=== PATIENT | male | born 1940 | race African-American/Black ===

== ENCOUNTER → 2017-09-19 | Outpatient (CLI) | payer OTHER ==
--- NOTE | 2017-09-19 15:24 | Diagnostic Imaging Report ---
EXAM: Scrotal Ultrasound with Duplex INDICATION: \[id number] \S\[id number] \S\LEFT TESTICULAR PAIN COMPARISON: None TECHNIQUE: Transverse and longitudinal images were obtained of the scrotum with grayscale imaging, color Doppler and spectral waveform analysis. FINDINGS: Right testis: Size: 4.6 x 3.3 x 3.3 cm, normal in size. Echogenicity: Normal Mass/Cysts: None Left testis: Size: 5 x 2.2 x 3.3 cm, normal in size. Echogenicity: Normal Mass/Cysts: None Epididymis: Appearance: Normal in size without increased vascularity. Mass/Cysts: None Extratesticular: Masses: None Hydrocele: None Varicocele: On the left side. Doppler: Normal arterial flow to both testes and symmetrical flow on color Doppler evaluation is seen. No evidence of testicular torsion. IMPRESSION: 1. No evidence of testicular torsion. 2. Left varicocele. Signed by: Dr. Reji Felipe MD on 09/19/2017 3:21 PM
--- NOTE | 2017-09-19 15:24 | Diagnostic Imaging Report ---
EXAM: Scrotal Ultrasound with Duplex INDICATION: \[id number] \S\1428 \S\LEFT TESTICULAR PAIN COMPARISON: None TECHNIQUE: Transverse and longitudinal images were obtained of the scrotum with grayscale imaging, color Doppler and spectral waveform analysis. FINDINGS: Right testis: Size: 4.6 x 3.3 x 3.3 cm, normal in size. Echogenicity: Normal Mass/Cysts: None Left testis: Size: 5 x 2.2 x 3.3 cm, normal in size. Echogenicity: Normal Mass/Cysts: None Epididymis: Appearance: Normal in size without increased vascularity. Mass/Cysts: None Extratesticular: Masses: None Hydrocele: None Varicocele: On the left side. Doppler: Normal arterial flow to both testes and symmetrical flow on color Doppler evaluation is seen. No evidence of testicular torsion. IMPRESSION: 1. No evidence of testicular torsion. 2. Left varicocele. Signed by: Dr. Reji Felipe MD on 09/19/2017 3:21 PM
== END ==
LOC: US 09-15 12:40
PROVIDERS: ATTEND Internal Medicine
DX: N50.9 Disorder of male genital organs, unspecified (principal)
CPT/HCPCS: 76870; 93976

== ENCOUNTER 2019-10-07 20:51 | Observation (INO) | payer OTHER ==
[~2019-10-07] VITALS: Ht 180.3 cm; Wt 85.6 kg
--- OUTSIDE RECORDS SUMMARY | 2019-10-07 20:53 | XMS REPORT ---
Author Author [facility] Address Unknown Phone Unavailable Care Team Providers Care Budget Controller Name Role Phone GETACHEW RAY Unavailable Unavailable Problems This patient has no known problems. Allergies, Adverse Reactions, Alerts This patient has no known allergies or adverse reactions. Medications This patient has no known medications. Results Test Description Test Time Test Comments Text Results Atomic Results Result Comments US TESTICULAR DOPPLER LTD [place] [address] Patient Name: NICCI WALTON MR #: [id number] : 1940 Age/Sex: 76/M Req #: [id number] Adm Physician: Ordered by: GETACHEW RAY MD Report #: [id number] Location: Room/Bed: Procedure: [id number] US/US TESTICULAR DOPPLER LTD Exam Date: 09/19/17 Exam Time: 1428 REPORT STATUS: Signed EXAM: Scrotal Ultrasound with Duplex INDICATION: COMPARISON: None TECHNIQUE: Transverse and longitudinal images were obtained of the scrotum with grayscale imaging, color Doppler and spectral waveform analysis. FINDINGS: Right testis: Size: 4.6 x 3.3 x 3.3 cm, normal in size. Echogenicity: Normal Mass/Cysts: None Left testis: Size: 5 x 2.2 x 3.3 cm, normal in size. Echogenicity: Normal Mass/Cysts: None Epididymis: Appearance: Normal in size without increased vascularity. Mass/Cysts: None Extratesticular: Masses: None Hydrocele: None Varicocele: On the left side. Doppler: Normal arterial flow to both testes and symmetrical flow on color Doppler evaluation is seen. No evidence of testicular torsion. IMPRESSION: 1. No evidence of testicular torsion. 2. Left varicocele. Signed by: Dr. Reji Felipe MD on 09/19/2017 3:21 PM Dictated By: REJI FELIPE MD 1521 Transcribed By: BRIANA on 09/19/17 1521 COPY TO: GETACHEW RAY MD TESTICULAR [place] [address] Patient Name: NICCI WALTON MR #: [id number] : 1940 Age/Sex: 76/M Req #: [id number] Adm Physician: Ordered by: GETACHEW RAY MD Report #: [id number] Location: US Room/Bed: Procedure: [id number] US/US TESTICULAR Exam Date: 09/19/17 Exam Time: 1428 REPORT STATUS: Signed EXAM: Scrotal Ultrasound with Duplex INDICATION: COMPARISON: None TECHNIQUE: Transverse and longitudinal images were obtained of the scrotum with grayscale imaging, color Doppler and spectral waveform analysis. FINDINGS: Right testis: Size: 4.6 x 3.3 x 3.3 cm, normal in size. Echogenicity: Normal Mass/Cysts: None Left testis: Size: 5 x 2.2 x 3.3 cm, normal in size. Echogenicity: Normal Mass/Cysts: None Epididymis: Appearance: Normal in size without increased vascularity. Mass/Cysts: None Extratesticular: Masses: None Hydrocele: None Varicocele: On the left side. Doppler: Normal arterial flow to both testes and symmetrical flow on color Doppler evaluation is seen. No evidence of testicular torsion. IMPRESSION: 1. No evidence of testicular torsion. 2. Left varicocele. Signed by: Dr. Rjei Felipe MD on 09/19/2017 3:21 PM Dictated By: REJI FELIPE MD 1521 Transcribed By: BRIANA on 09/19/17 1521 COPY TO: GETACHEW RAY MD
[2019-10-07 21:12] LABS: BASOPHILS # (AUTO) 0.1 (0.0-0.1); BASOPHILS % 1.4 % (0.0-1.0); EOSINOPHILS # (AUTO) 0.4 (0.0-0.4); EOSINOPHILS % 7.7 % (0.0-6.0); HEMATOCRIT 42.8 % (38.2-49.6); HEMOGLOBIN 14.4 g/dL (14.0-18.0); LYMPHOCYTES # (AUTO) 1.1 (1.0-3.2); LYMPHOCYTES % 18.3 % (18.0-39.1); MEAN CORPUSCULAR HGB CONC 33.6 g/dL (31-35); MEAN CORPUSCULAR VOLUME 89.2 fL (81-99); MONOCYTES # (AUTO) 0.7 (0.2-0.8); MONOCYTES % 12.7 % (4.4-11.3); NEUTROPHILS # (AUTO) 3.4 (2.1-6.9); NEUTROPHILS % 59.6 % (38.7-80.0); PLATELET COUNT 209 x10e3/uL (140-360); RED CELL DISTRIBUTION WIDTH 12.7 % (11.7-14.4)
[2019-10-07 21:31] LABS: ALBUMIN 3.6 g/dL (3.5-5.0); ALBUMIN/GLOBULIN RATIO 1.1 (0.8-2.0); ANION GAP 14.9 mmol/L (8-16); CALCIUM 9.5 mg/dL (8.4-10.2); CREATININE, SERUM 1.39 mg/dL (0.72-1.25); POTASSIUM 3.9 mmol/L (3.5-5.1)
[2019-10-07 21:37] LABS: CREATINE KINASE MB 2.3 ng/mL (0-5.0)
--- NOTE | 2019-10-07 22:33 | Diagnostic Imaging Report ---
Examination: CT head without contrast Clinical Indication: Dizziness, nausea. Technique: Transaxial noncontrast images from the skull base through the vertex were obtained. Sagittal and coronal reformatted images were done. Dose modulation, iterative reconstruction, and/or weight based adjustment of the mA/kV was utilized to reduce the radiation dose to as low as reasonably achievable. Comparison: None. Findings: Scalp: No abnormalities. Bones: Intact. No fractures. No blastic or lytic lesions. Brain sulci: Mild volume loss for patient's age. Ventricles: No hydrocephalus. Extra-axial space: No abnormalities. Parenchyma: There are subtle confluent areas of low-attenuation within subcortical and periventricular white matter, nonspecific, but could represent microvascular ischemic disease. No masses, hemorrhage, or acute or chronic cortical based vascular insults. Suprasellar region: No abnormalities. Craniocervical junction: The foramen magnum is patent. No Chiari one malformation. Incidental findings: Atherosclerotic calcification of the cavernous and supraclinoid internal carotid arteries. Impression: 1. No acute intracranial finding. 2. Mild chronic microvascular ischemic change and volume loss. Signed by: Dr. Kelley Clark M.D. on 10/07/2019 10:31 PM
--- NOTE | 2019-10-07 22:41 | Diagnostic Imaging Report ---
EXAMINATION: CHEST 2 VIEWS INDICATION: Left chest pain, dizziness ^CP ^Y COMPARISON: None FINDINGS: PA and lateral views TUBES and LINES: None. LUNGS: Lungs are well inflated. There is no evidence of pneumonia or pulmonary edema. PLEURA: No pleural effusion or pneumothorax. Mild eventration of the right diaphragm. HEART AND MEDIASTINUM: The cardiomediastinal silhouette is unremarkable.. BONES AND SOFT TISSUES: Degenerative changes of the spine. No focal osseous lesions. Soft tissues are unremarkable. UPPER ABDOMEN: Unremarkable. IMPRESSION: No acute thoracic abnormality. Signed by: Dr. Genny Cruz MD on 10/07/2019 10:39 PM
[2019-10-07] MEDS ORDERED: DEXTROSE 50% SYRINGE 50 ML IV PRN (23:45)
[2019-10-08] VITALS (9 sets, daily range): BP systolic 124–185; BP diastolic 62–89
[2019-10-08 03:03] LABS: CREATINE KINASE MB 1.9 ng/mL (0-5.0)
[2019-10-08 06:28] LABS: CREATINE KINASE MB 1.8 ng/mL (0-5.0)
[2019-10-08 06:45] LABS: CHOL/HDL RATIO 3.2 (3.9-4.7)
[2019-10-08] MEDS: INSULIN REGULAR, HUMAN 100 UNIT/1 ML 3ML VIAL SQ SCH ×4 (07:30→20:45)
[2019-10-08] MEDS ORDERED: VIT D PO (07:47)
[2019-10-08] MEDS ORDERED: BUPROPION PO (07:47)
[2019-10-08] MEDS ORDERED: MVI PO (07:47)
[2019-10-08] MEDS ORDERED: GLIPIZIDE PO (07:47)
[2019-10-08] MEDS ORDERED: ROSUVASTATIN PO (07:47)
[2019-10-08] MEDS ORDERED: FLOMAX PO (07:47)
[2019-10-08] MEDS ORDERED: VIT B 12 PO (07:47)
[2019-10-08] MEDS ORDERED: AMLODIPINE PO (07:47)
[2019-10-08] MEDS ORDERED: LISINOPRIL PO (07:47)
[2019-10-08] MEDS: FAMOTIDINE 20 MG TAB PO SCH ×2 (08:28→17:24)
[2019-10-08] MEDS: METOPROLOL TARTRATE 25 MG TAB PO SCH ×2 (08:28→20:49)
[2019-10-08] MEDS: ASPIRIN 81 MG CHEW TAB PO SCH (08:28)
[2019-10-08] MEDS ORDERED: AMLODIPINE BESYLATE 5 MG TAB PO SCH (09:00)
[2019-10-08] MEDS: LISINOPRIL 20 MG TAB PO SCH (09:57)
[2019-10-08] MEDS: BUPROPION HCL 150 MG TABCR PO SCH (09:57)
[2019-10-08] MEDS: HYDRALAZINE HCL 25 MG TAB PO SCH ×2 (13:41→23:00)
--- NOTE | 2019-10-08 14:08 | History and Physical ---
CHIEF COMPLAINT: Left-sided chest pain last evening, lasting for about half an hour. HISTORY OF PRESENT MEDICAL ILLNESS: A 78-year-old pleasant male with past medical history of multiple medical problems, was admitted at [facility] last night with above complaints. As per the patient, around 4 p.m. yesterday, he started having left-sided chest pain. The patient thought that he probably he might be having low sugar. He had some pie and then the pain got better. Then, again in 2-3 hours, the patient again started having left-sided severe chest pain and hence EMS was called. The patient was brought in by ambulance to the ER. In the emergency room, the patient was seen by emergency room doctor, Dr. Lisa and admitted for further care and treatment. At present, the patient is lying comfortably in bed asymptomatic. No chest pain. No shortness of breath. No nausea, vomiting, or diarrhea. No abdominal pain. No loss of consciousness. No palpitations. No headaches. No hematemesis. No melena. No hematuria. No dysuria. No fever. No cough. No witnessed seizures. PAST MEDICAL HISTORY: 1. Diabetes mellitus type 2. 2. Hypertension. 3. Hyperlipidemia. 4. Gout. MEDICATIONS: Aspirin 81 mg p.o. daily, glipizide 0.5 mg p.o. daily, rosuvastatin 20 mg p.o. daily, multivitamins, Wellbutrin XL 300 mg p.o. daily, Flomax 0.4 mg p.o. daily, latanoprost 0.005% solution in affected eye evening once a day, hydrochlorothiazide 25 mg p.o. daily, lisinopril 20 mg p.o. daily, and amlodipine 5 mg p.o. daily. ALLERGIES: IODINE. PAST SURGICAL HISTORY: None. SOCIAL HISTORY: No smoking. No alcohol. No illicit drug use. Lives with family. REVIEW OF SYSTEMS: As per HPI. PHYSICAL EXAMINATION: GENERAL: The patient is alert, awake, and oriented x3, in no apparent distress, lying in bed. VITAL SIGNS: Temperature is 97, pulse is 67 per minute, respirations 18 per minute, blood pressure is 164/80, and saturation is 98% on room air. SKIN: No cyanosis. No icterus. No pallor. HEENT: Normocephalic and atraumatic. PERRLA plus. NECK: Supple. No JVD. No carotid bruit. No lymphadenopathy. LUNGS: Air entry bilaterally equal. HEART: S1 and S2 plus. No murmur, gallop, or rub. ABDOMEN: Soft and nontender. Bowel sounds plus. 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 No focal deficit. EXTREMITIES: No cyanosis. No clubbing. No edema. Peripheral pulses palpable. No calf pain. LABORATORY DATA: White count 5.7, hemoglobin 14.4, hematocrit 42.8, and platelets 209. Sodium 142, potassium 3.9, chloride 105, bicarb 26, BUN 18, creatinine 1.39, and glucose 187. LFTs noted. Cardiac enzymes x2 negative. LDL 91, HDL 47, and total cholesterol 150. EKG shows sinus rhythm with first-degree AV block, bifascicular block, left ventricular hypertrophy. ASSESSMENT: 1. Chest pain, rule out ischemic heart disease. 2. History of diabetes mellitus type 2. 3. Hypertension. 4. Gout. PLAN: Admit the patient to med/tele. Serial cardiac enzymes. 2D echo. Cardiology consultation, Dr. Glass. Continue home medications. DVT and stress prophylaxis. Further care and treatment as per clinical course of the patient in the hospital. Discussed with the patient in detail. Vilma Wells MD SSB/MODL /[id number]
[2019-10-08 15:15] LABS: CREATINE KINASE MB 2.3 ng/mL (0-5.0)
[2019-10-08] MEDS: ENOXAPARIN SOD INJ 40 MG/0.4 ML SYR SC SCH (17:24)
[2019-10-08] MEDS: CRESTOR 10MG PO SCH (20:48)
[2019-10-08] MEDS: TAMSULOSIN HCL 0.4 MG CAP PO SCH (20:48)
--- NOTE | 2019-10-09 01:06 | Consultation ---
DATE OF CONSULTATION: 10/08/2019 Cardiology Consult Note REASON FOR CONSULT: Chest pain. CHIEF COMPLAINT: Chest pain and dizziness. HISTORY OF PRESENT ILLNESS: The patient is a 78-year-old man history of diabetes, hypertension, hyperlipidemia with no previous history of CAD or MO or other cardiovascular issues. He says yesterday afternoon, he started feeling a little bit unwell with some discomfort in his chest. Initially, he did not think much of it and went to have dinner at his sister's house. After having a large meal, he returned home and when he was at home, started having left-sided pressure in his chest with some associated dizziness. He thought he had to use the restroom. He tried to use the restroom, but due to pain, he had to sit down on the floor. The pain lasted several minutes and eventually eased. EMS was called and the patient was brought to the emergency room. He denies any shortness of breath, orthopnea, PND, palpitations, or syncopal event. No fevers, chills, or cough. PAST MEDICAL HISTORY: 1. Diabetes type 2, on oral medications only. 2. Hypertension. 3. Hyperlipidemia. SOCIAL HISTORY: The patient is a never smoker. Drinks occasionally. Does not abuse drugs. FAMILY HISTORY: No family history of early CAD or sudden cardiac . OUTPATIENT MEDICATIONS: Reviewed. ALLERGIES: REVIEWED. REVIEW OF SYSTEMS: As per HPI, otherwise negative. OBJECTIVE: VITAL SIGNS: Temperature afebrile, pulse 75, respiratory rate 18, blood pressure 124/76, saturating 100% on room air. GENERAL: Elderly man, in no acute distress. CARDIOVASCULAR: Regular rate and rhythm. No murmurs, rubs, or gallops. LUNGS: Clear to auscultation bilaterally. ABDOMEN: Soft, nontender, nondistended. No masses. NEURO AND PSYCH: Alert and oriented to person, place, and time. Normal affect. EXTREMITIES: Lower extremities without any ulcers or edema. Peripheral pulses are intact and palpable. INPATIENT MEDICATIONS: Reviewed. LABORATORY DATA: Reviewed. Troponins are negative x2. Creatinine 1.4. Hemoglobin 14. IMAGING DATA: Reviewed. Chest x-ray shows no acute abnormality. Head CT shows no acute intracranial findings. TELEMETRY DATA: Reviewed, shows normal sinus rhythm. A 12-lead EKG reviewed shows right bundle branch block with no acute ST-T changes suggestive of ischemia. Echocardiogram reviewed, shows normal LV function. No severe valvular abnormalities. ASSESSMENT: Chest pain. PLAN: Had both typical and atypical features. The patient has been ruled out for acute MO. Given his age and risk factors, recommend nuclear stress test tomorrow. Further recommendations with results of the study. Plan discussed with the patient. Thank you for this consult. We will continue to follow. MD SHAAN Byrd/MAGEN /[id number]
[2019-10-09 05:05] VITALS: BP 130/74
[2019-10-09] MEDS: HYDRALAZINE HCL 25 MG TAB PO SCH ×3 (06:27→22:30)
[2019-10-09 07:25] VITALS: BP 147/89
[2019-10-09] MEDS: INSULIN REGULAR, HUMAN 100 UNIT/1 ML 3ML VIAL SQ SCH ×4 (07:30→21:00)
[2019-10-09 07:56] VITALS: BP 147/82
[2019-10-09] MEDS: FAMOTIDINE 20 MG TAB PO SCH ×2 (08:10→16:30)
[2019-10-09] MEDS: ASPIRIN 81 MG CHEW TAB PO SCH (09:25)
[2019-10-09] MEDS: METOPROLOL TARTRATE 25 MG TAB PO SCH ×2 (09:25→21:34)
[2019-10-09] MEDS: LISINOPRIL 20 MG TAB PO SCH (09:25)
[2019-10-09] MEDS: BUPROPION HCL 150 MG TABCR PO SCH (09:26)
[2019-10-09 11:16] VITALS: BP 136/78
--- NOTE | 2019-10-09 12:38 | Progress Note ---
DATE: 10/09/2019 Cardiology Progress Note SUBJECTIVE: The patient feeling better. Denies any chest pain or shortness of breath. OBJECTIVE: VITAL SIGNS: Temperature 97.3, heart rate is 51, respirations are 18, blood pressure is 136/78, and oxygen saturation 100% on room air. GENERAL: Well-appearing, in no apparent distress. Alert and oriented x3. NECK: No JVD. No bruits. CARDIOVASCULAR: Regular rate and rhythm. No murmurs. LUNGS: Clear to auscultation. No wheezing or rales. ABDOMEN: Soft, nontender, and nondistended. EXTREMITIES: No clubbing, cyanosis, or edema. VASCULAR: 2+ pulses. NEUROLOGIC: No focal deficits noted. LABORATORY DATA: Reviewed. Normal troponins. Glucose was 115. No recent labs. IMPRESSION: 1. Precordial pain. 2. Abnormal electrocardiogram. 3. Right bundle branch block. 4. Bradycardia. 5. Hypertension. 6. Hyperlipidemia. RECOMMENDATIONS: Continue current cardiovascular medications including lisinopril, metoprolol, aspirin, and Crestor. Lovenox for DVT prophylaxis. His echocardiogram showed normal left ventricular systolic function. We will need ischemic evaluation with nuclear stress test tomorrow morning. DO EULALIA Walters/MODL /[id number]
[2019-10-09 15:14] VITALS: BP 118/74
[2019-10-09] MEDS: ENOXAPARIN SOD INJ 40 MG/0.4 ML SYR SC SCH (17:13)
[2019-10-09 20:00] VITALS: BP 155/79
[2019-10-09] MEDS: TAMSULOSIN HCL 0.4 MG CAP PO SCH (21:34)
[2019-10-09] MEDS: CRESTOR 10MG PO SCH (21:34)
[2019-10-10] VITALS (8 sets, daily range): BP systolic 134–190; BP diastolic 67–99
[2019-10-10] MEDS: HYDRALAZINE HCL 25 MG TAB PO SCH ×3 (06:13→21:12)
[2019-10-10] MEDS: FAMOTIDINE 20 MG TAB PO SCH ×2 (07:30→18:06)
[2019-10-10] MEDS: INSULIN REGULAR, HUMAN 100 UNIT/1 ML 3ML VIAL SQ SCH ×4 (07:30→20:10)
[2019-10-10] MEDS ORDERED: REGADENOSON 0.4 MG/5 ML SYR IV ONE (08:33)
--- NOTE | 2019-10-10 10:38 | Progress Note ---
DATE: 10/10/2019 Cardiology Progress Note SUBJECTIVE: The patient feeling well, seated in chair. No chest pain, shortness of breath, or palpitations. OBJECTIVE: VITAL SIGNS: Temperature is 97.9, heart rate is 58, respirations are 20, blood pressure is 139/77, and oxygen saturation 99% on room air. GENERAL: Well appearing, well built, in no apparent distress. Alert and oriented x3. HEAD: Normocephalic and atraumatic. CARDIOVASCULAR: Regular rate and rhythm. LUNGS: Clear to auscultation. ABDOMEN: Soft, nontender, and nondistended. EXTREMITIES: No clubbing, cyanosis, or edema. VASCULAR: 2+ pulses. LABORATORY DATA: Reviewed. Glucose is 136. CARDIOVASCULAR MEDICATIONS: Reviewed. TELEMETRY: Monitoring revealed normal sinus rhythm. IMPRESSION: 1. Precordial pain. 2. Hypertension. 3. Hyperlipidemia. 4. Abnormal echocardiogram. 5. Right bundle branch block. RECOMMENDATIONS: The patient ruled out for acute myocardial infarction. Continue current cardiovascular medications. Echocardiogram showed normal left ventricular systolic function. Today, he will undergo ischemic evaluation with a nuclear stress test. If this is within normal limits, the patient may be discharged from a cardiovascular standpoint. DO EULALIA Walters/MAGEN /[id number]
[2019-10-10] MEDS: ASPIRIN 81 MG CHEW TAB PO SCH (14:00)
[2019-10-10] MEDS: BUPROPION HCL 150 MG TABCR PO SCH (14:58)
[2019-10-10] MEDS: LISINOPRIL 20 MG TAB PO SCH (14:58)
[2019-10-10] MEDS: METOPROLOL TARTRATE 25 MG TAB PO SCH ×2 (14:59→21:12)
[2019-10-10] MEDS: ENOXAPARIN SOD INJ 40 MG/0.4 ML SYR SC SCH (17:00)
[2019-10-10 19:28] LABS: ANION GAP 14.1 mmol/L (8-16); BLOOD UREA NITROGEN 15 mg/dL (7-26); BUN/CREATININE RATIO 13 (6-25); CALCIUM 9.2 mg/dL (8.4-10.2); CARBON DIOXIDE 26 mmol/L (22-29); CHLORIDE 103 mmol/L (98-107); CREATININE, SERUM 1.12 mg/dL (0.72-1.25); EST GLOMERULAR FILTRATION RATE > 60 ML/MIN (60-); GLUCOSE 121 mg/dL (74-118); POTASSIUM 4.1 mmol/L (3.5-5.1); SODIUM 139 mmol/L (136-145)
[2019-10-10] MEDS: TAMSULOSIN HCL 0.4 MG CAP PO SCH (21:12)
[2019-10-10] MEDS: CRESTOR 10MG PO SCH (21:12)
[2019-10-11] VITALS: BP 163/81
[2019-10-11 04:00] VITALS: BP 134/71
[2019-10-11] MEDS: HYDRALAZINE HCL 25 MG TAB PO SCH (05:31)
[2019-10-11 08:00] VITALS: BP 121/76
[2019-10-11] MEDS ORDERED: HEPARIN SOD (PORCINE) 1000 UNIT/ML 30ML ONE (09:23)
[2019-10-11] MEDS ORDERED: MIDAZOLAM HCL 2 MG/2 ML VIAL ONE (09:24)
[2019-10-11] MEDS ORDERED: FENTANYL CITRATE/PF 100MCG/2 ML INJ ONE (09:24)
[2019-10-11] MEDS ORDERED: VERAPAMIL HCL 2.5 MG/ML 2 ML VIAL ONE (09:24)
[2019-10-11] MEDS ORDERED: IOPAMIDOL 370 MG/ML 200 ML INFUS..BTL INJ ONE (09:25)
[2019-10-11] MEDS ORDERED: LIDOCAINE HCL 2% LOCAL 20 ML VIAL ONE (09:25)
[2019-10-11] MEDS ORDERED: SODIUM CHLORIDE 0.9% 1000ML 1,000 ML ONE (09:25)
[2019-10-11] MEDS ORDERED: NITROGLYCERIN/D5W 200 MCG/ML 0 ML ONE (09:25)
[2019-10-11] MEDS ORDERED: HEPARIN SOD/SOD CHLORIDE 2,000 ML ONE (09:25)
[2019-10-11] MEDS ORDERED: METHYLPREDNISOLONE SOD SUCC 125 MG/2ML VIAL ONE (09:37)
[2019-10-11] MEDS ORDERED: DIPHENHYDRAMINE HCL INJ 50 MG/ML VIAL ONE (09:37)
--- NOTE | 2019-10-11 11:49 | Operative Report ---
DATE OF PROCEDURE: 10/11/2019 SURGEON: Hector Dixon DO PROCEDURES PERFORMED: 1. Selective coronary angiography x2. 2. Conscious sedation, 26 minutes. PREPROCEDURE DIAGNOSIS: Abnormal stress test. POSTPROCEDURE DIAGNOSIS: No significant coronary artery disease. ESTIMATED BLOOD LOSS: Less than 20 mL. SPECIMENS REMOVED: None. PROCEDURE IN DETAIL: After informed consent was obtained, the patient was brought to the cardiac catheterization laboratory in a fasting and nonsedated state. Bilateral groins were prepped and draped in usual sterile fashion. A 2% lidocaine was infiltrated over the right anterior groin for local anesthesia. Using micropuncture needle, the right common femoral artery was accessed via modified Seldinger technique and a 5-Bengali sheath was placed. Next, diagnostic coronary angiography x2 was performed. The patient tolerated the procedure well with no immediate complications and was transferred to his room in stable condition. PROCEDURAL FINDINGS: 1. Left main coronary artery is patent without significant disease. 2. Left anterior descending coronary artery is patent with luminal irregularities. 3. Left circumflex coronary provides two obtuse marginal vessels and is patent. 4. Right coronary artery is dominant vessel provides the PDA and has luminal irregularities. IMPRESSION: No significant coronary artery disease. RECOMMENDATIONS: Continue medical management and the patient may be discharged from a cardiovascular standpoint. Hector Dixon DO BM/MODL /[id number]
--- NOTE | 2019-10-12 18:41 | Myoview Stress Test ---
DATE OF STUDY: 10/08/2019 18:01:00 Stress Test - Treadmill ONLY STRESS SUMMARY: The patient was stressed utilizing regadenoson under the usual protocol. Baseline heart rate was 58 and tali to 70 beats per minute. Baseline blood pressure was 129/71 and increased to 140/72 at peak stress. The patient elicited no cardiac symptoms throughout the stress test. Baseline 12-lead electrocardiogram showed normal sinus rhythm with nonspecific ST-T wave abnormalities. There was no ST deviation or arrhythmias noted throughout the stress protocol. Myocardial perfusion imaging: The patient received technetium-99m tetrofosmin 11 mCi at stress and 33 mCi at rest. Images revealed a small mild inferior reversible perfusion defect. Gated images revealed left ventricular ejection fraction of 55%. CONCLUSIONS: 1. Normal clinical, hemodynamic, and electrocardiographic Lexiscan stress test. 2. Abnormal myocardial perfusion images showing a small mild inferior ischemic area versus attenuation artifact. 3. Normal left ventricular ejection fraction. DO EULALIA Walters/KATRINAL /[id number]
== END 2019-10-11 15:13 | disposition home or self-care (01) ==
LOC: ER 20:51 → ERHOLD 23:13 → MED/SURG 23:44 → MED/SURG3 10-08 15:04
PROVIDERS: ADMIT Internal Medicine; ATTEND Internal Medicine
DX: R07.2 Precordial pain (principal); E11.9 Type 2 diabetes mellitus without complications; E78.5 Hyperlipidemia, unspecified; Z79.82 Long term (current) use of aspirin; M10.9 Gout, unspecified; I45.10 Unspecified right bundle-branch block; Z88.8 Allergy status to other drugs, medicaments and biological substances; Z91.013 Allergy to seafood; Z91.048 Other nonmedicinal substance allergy status; I10 Essential (primary) hypertension; Z79.84 Long term (current) use of oral hypoglycemic drugs
CPT/HCPCS: 36415; 70450; 71046; 78452; 80048; 80053; 80061; 82550; 82553; 82948; 83036; 84443; 84484; 85025; 93005; 93017; 93306; 93454; 99152; 99284; A9502; C1760; C1769; G0378; J1200; J1644; J1650; J1817; J2001; J2250; J2930; J3010; J7030; Q9967

== ENCOUNTER 2019-12-25 07:09 | Emergency (ER) | payer OTHER ==
[~2019-12-25] VITALS: Ht 180.3 cm; Wt 85.3 kg
[~2019-12-25 07:09] MED LIST: AMLODIPINE PO; BUPROPION PO; FLOMAX PO; GLIPIZIDE PO; LISINOPRIL PO; MVI PO; ROSUVASTATIN PO; VIT B 12 PO; VIT D PO
[2019-12-25] MEDS ORDERED: ONDANSETRON HCL INJ 2MG/ML 2ML 2 MG/ML VIAL IV STA (07:21)
[2019-12-25] MEDS ORDERED: SODIUM CHLORIDE 0.9% 1000ML 1,000 ML IV STA (07:21)
[2019-12-25] MEDS ORDERED: PANTOPRAZOLE 40 MG 10ML VIAL IV STA (07:21)
[2019-12-25 07:52] LABS: BASOPHILS # (AUTO) 0.1 (0.0-0.1); BASOPHILS % 1.2 % (0.0-1.0); EOSINOPHILS # (AUTO) 0.4 (0.0-0.4); EOSINOPHILS % 8.6 % (0.0-6.0); HEMATOCRIT 39.8 % (38.2-49.6); HEMOGLOBIN 13.6 g/dL (14.0-18.0); LYMPHOCYTES # (AUTO) 0.7 (1.0-3.2); LYMPHOCYTES % 13.9 % (18.0-39.1); MEAN CORPUSCULAR HEMOGLOBIN 30.2 pg (28-32); MEAN CORPUSCULAR HGB CONC 34.2 g/dL (31-35); MEAN CORPUSCULAR VOLUME 88.2 fL (81-99); MONOCYTES # (AUTO) 0.5 (0.2-0.8); MONOCYTES % 10.4 % (4.4-11.3); NEUTROPHILS # (AUTO) 3.3 (2.1-6.9); NEUTROPHILS % 65.7 % (38.7-80.0); PLATELET COUNT 178 x10e3/uL (140-360); RED BLOOD COUNT 4.51 x10e6/uL (4.3-5.7); RED CELL DISTRIBUTION WIDTH 12.8 % (11.7-14.4)
--- NOTE | 2019-12-25 08:09 | Diagnostic Imaging Report ---
Exam: Head CT without contrast History: Vertigo, dizziness, headache Comparison studies: None Technique: Axial images were obtained from the skull base to the vertex. Coronal and sagittal images reconstructed from the axial data. Dose modulation, iterative reconstruction, and/or weight based adjustment of the mA/kV was utilized to reduce the radiation dose to as low as reasonably achievable. Radiation dose: Total DLP: 921.4 mGy*cm. Estimated effective dose: DLP x 0.015 Intravenous contrast: None Findings: Scalp: No abnormalities. Bones: No fractures, blastic or lytic lesions. Brain sulci: Appropriate for age. Ventricles: Mild compensatory dilatation. No hydrocephalus. Extra-axial spaces: No masses, no fluid collection. Parenchyma: No mass, acute hemorrhage or acute or chronic cortical insults. A few scattered hypodensities in the supratentorial white matter are nonspecific but most compatible with chronic small vessel ischemic changes. Sellar/suprasellar region: No abnormalities. Craniocervical junction: Patent foramen magnum. No Chiari one malformation. Included paranasal sinuses: Nonspecific scattered frontoethmoidal mucosal thickening. Middle ear mastoid cavities: Clear. Incidental findings: Atherosclerotic calcifications in the carotid siphons. Bilateral intraocular lens replacements. Punctate hyperdensity with density similar to calcium which abuts the right lens in the anterior chamber may be a foreign body. IMPRESSION: 1. No acute intracranial abnormalities. 2. Mild age-related generalized parenchymal volume loss. 3. Mild chronic microvascular ischemic changes. Signed by: Dr. Iglesia Sinclair M.D. on 12/25/2019 8:05 AM
[2019-12-25 08:15] LABS: ALANINE AMINOTRANSFERASE 16 IU/L (0-55); ALBUMIN 3.7 g/dL (3.5-5.0); ALBUMIN/GLOBULIN RATIO 1.1 (0.8-2.0); ALKALINE PHOSPHATASE 49 IU/L (40-150); ANION GAP 9.8 mmol/L (8-16); BLOOD UREA NITROGEN 12 mg/dL (7-26); BUN/CREATININE RATIO 14 (6-25); CALCIUM 9.1 mg/dL (8.4-10.2); CARBON DIOXIDE 27 mmol/L (22-29); CHLORIDE 108 mmol/L (98-107); CREATINE KINASE 137 IU/L (30-200); CREATININE, SERUM 0.88 mg/dL (0.72-1.25); EST GLOMERULAR FILTRATION RATE > 60 ML/MIN (60-); GLUCOSE 113 mg/dL (74-118); MAGNESIUM 1.9 MG/DL (1.3-2.1); POTASSIUM 3.8 mmol/L (3.5-5.1); SODIUM 141 mmol/L (136-145)
--- NOTE | 2019-12-25 08:28 | Diagnostic Imaging Report ---
History: Headache, dizziness, vertigo Comparison: 10/25/2019 Findings: The lungs are clear. No pleural effusions or pneumothorax. The heart shadow is normal in size. The thoracic aorta is mildly tortuous and calcified. Degenerative changes are present in the spine. Impression: No evidence of acute cardiopulmonary disease. Signed by: Iglesia Marion MD on 12/25/2019 8:24 AM
[2019-12-25 08:32] LABS: INR 0.96; PROTHROMBIN TIME 13.3 seconds (11.9-14.5)
[2019-12-25 08:33] LABS: PARTIAL THROMBOPLASTIN TIME 29.1 seconds (23.8-35.5)
[2019-12-25 09:30] LABS: CLARITY,URINE CLEAR (CLEAR); COLOR,URINE YELLOW (YELLOW)
[2019-12-25 09:31] LABS: BILIRUBIN,URINE NEGATIVE (NEGATIVE); KETONES,URINE NEGATIVE (NEGATIVE); LEUKOCYTE ESTERASE ,URINE NEGATIVE (NEGATIVE); NITRITE,URINE NEGATIVE (NEGATIVE); PROTEIN,URINE DIPSTICK NEGATIVE (NEGATIVE); URINE UROBILINOGEN 0.2 mg/dL (0.2 - 1)
[2019-12-25 09:47] LABS: BACTERIA,URINE RARE /HPF; EPITHELIAL CELLS,URINE RARE /LPF
--- NOTE | 2019-12-25 11:06 | Diagnostic Imaging Report ---
Exams: Brain MRI, neck MRA and intracranial MRA without IV contrast History: Comparison studies: Head CT 12/25/2019 and 10/07/2019 Technique: Brain: Pre-contrast: Sagittal T2; axial T2, T1-IR, MPGR, DWI, axial and coronal T2 FLAIR Intracranial MRA: Axial 3-D [id number] with coronal, sagittal and 3-D MIP reformats. Neck MRA: Axial 2-D [id number] with 3-D MIP reformats. Intravenous contrast: None Findings: Brain: Several pulse sequences are suboptimal due to artifacts related to patient motion. Scalp: No abnormal signal. No masses. Bone marrow: Normal in signal intensity. Brain sulci: Mildly prominent. Ventricles: Mild compensatory dilatation. No hydrocephalus. Extra-axial spaces: No mass, no fluid collection. Parenchyma: No mass, hemorrhage, acute ischemia or cortical insults. A few scattered T2 FLAIR hyperintense foci in the supratentorial white matter and sonu and mildly confluent T2 FLAIR hyperintensity in the supratentorial periventricular white matter is most compatible with chronic microvascular ischemic changes. Suprasellar region: No abnormalities. Craniocervical junction: No abnormalities. The foramen magnum is patent. No Chiari malformations. Vessels: Normal flow-voids in the arteries and sinuses. Paranasal sinuses: Mild scattered nonspecific T2 hyperintense inflammatory mucosal thickening bilaterally. Incidental findings: Bilateral intraocular lens replacements presumably for previous scattered surgery. Focal decreased signal with "blooming" on the T2*GRE sequence within the anterior chamber of the right globe corresponds to a hyperdensity on the CT which may be a retained foreign body. Can correlate with ophthalmologic exam. Neck MRA: Potential stenosis at the carotid bulbs is calculated utilizing NASCET criteria which compares the narrowest ICA diameter at the carotid bulb to the diameter of the normal distal cervical ICA. Exam is somewhat limited by artifacts related to patient motion. Aortic arch: No gross abnormalities within the included arch. Common carotid arteries: Patent, no flow limiting stenosis. Carotid bulbs: Patent, no (0%) stenosis by NASCET criteria on the left. Possible mild stenosis versus flow related artifact at the right carotid bulb without associated flow signal limitation distally in the right ICA. Internal carotid arteries: Patent, no flow limiting stenosis. Vertebral arteries: Patent, no flow limiting stenosis. Intracranial MRA: Exam is limited by motion artifacts. Anterior circulation: Internal carotid arteries: Patent bilaterally. Calcified atherosclerosis in the bilateral cavernous and paraophthalmic segments do not result significant stenosis. Middle cerebral arteries: Patent, no proximal branch occlusion or significant stenosis. Anterior cerebral arteries: Patent left A1 and bilateral A2 segments. 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 There is 2 mm fusiform dilatation at the junction of the anterior communicating artery and right A2 segment. Posterior circulation: Vertebral arteries: Patent, no stenosis. Basilar artery: Patent, no flow signal abnormalities. Posterior cerebral arteries: Patent, no proximal branch occlusion or stenosis. 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 Pcom: Not visualized bilaterally. Vertebral arteries:Codominant. IMPRESSION: Exams are limited by artifacts related to patient motion. In spite of limitations: Brain MRI: 1. No acute intracranial abnormalities 2. Mild age-related generalized brain volume loss. 3. Mild chronic microvascular ischemic changes. Neck MRA: 1. Possible mild stenosis at the right carotid bulb. Patent, no (0%) stenosis at left carotid bulb by NASCET criteria. 2. Patent vertebral arteries without flow limiting stenosis. Intracranial MRA: 1. No major arterial branch occlusion or significant stenosis. 2. Approximately 2 mm fusiform dilatation at the junction of the anterior communicating artery and right A2 VERONICA segment. Signed by: Dr. Iglesia Sinclair M.D. on 12/25/2019 11:03 AM
== END 2019-12-25 11:35 | disposition home or self-care (01) ==
LOC: ER 07:09
DX: R42 Dizziness and giddiness (principal); E86.0 Dehydration
CPT/HCPCS: 36415; 70450; 70544; 70547; 70551; 71045; 80053; 81001; 82550; 82553; 83735; 83880; 84484; 85025; 85610; 85730; 87086; 93005; 99284; C9113; J2405; J7030

== ENCOUNTER 2020-06-07 03:43 | Observation (INO) | payer OTHER ==
[~2020-06-07] VITALS: Ht 180.3 cm; Wt 85.3 kg
[2020-06-07] MEDS ORDERED: SODIUM CHLORIDE 0.9% 1000ML 1,000 ML IV STA (03:46)
[2020-06-07] MEDS ORDERED: ONDANSETRON HCL INJ 2MG/ML 2ML 2 MG/ML VIAL IV STA (03:46)
[2020-06-07 04:03] LABS: HEMATOCRIT 39.9 % (38.2-49.6); HEMOGLOBIN 13.1 g/dL (14.0-18.0); RED BLOOD COUNT 4.36 x10e6/uL (4.3-5.7)
[2020-06-07 04:04] LABS: BASOPHILS # (AUTO) 0.1 (0.0-0.1); EOSINOPHILS # (AUTO) 0.4 (0.0-0.4); EOSINOPHILS % 7.1 % (0.0-6.0); LYMPHOCYTES # (AUTO) 0.9 (1.0-3.2); LYMPHOCYTES % 14.9 % (18.0-39.1); MEAN CORPUSCULAR HGB CONC 32.8 g/dL (31-35); MEAN CORPUSCULAR VOLUME 91.5 fL (81-99); MONOCYTES # (AUTO) 0.6 (0.2-0.8); MONOCYTES % 9.3 % (4.4-11.3); NEUTROPHILS # (AUTO) 4.2 (2.1-6.9); NEUTROPHILS % 67.5 % (38.7-80.0); PLATELET COUNT 187 x10e3/uL (140-360); RED CELL DISTRIBUTION WIDTH 13.1 % (11.7-14.4)
[2020-06-07 04:25] LABS: ALANINE AMINOTRANSFERASE 21 IU/L (0-55); ALBUMIN 3.7 g/dL (3.5-5.0); ALBUMIN/GLOBULIN RATIO 1.1 (0.8-2.0); ALKALINE PHOSPHATASE 51 IU/L (40-150); ANION GAP 11.7 mmol/L (8-16); BLOOD UREA NITROGEN 14 mg/dL (7-26); BUN/CREATININE RATIO 15 (6-25); CALCIUM 8.8 mg/dL (8.4-10.2); CARBON DIOXIDE 26 mmol/L (22-29); CHLORIDE 106 mmol/L (98-107); CREATINE KINASE 184 IU/L (30-200); CREATININE, SERUM 0.93 mg/dL (0.72-1.25); EST GLOMERULAR FILTRATION RATE > 60 ML/MIN (60-); GLUCOSE 130 mg/dL (74-118); LIPASE 14 U/L (8-78); POTASSIUM 3.7 mmol/L (3.5-5.1); SODIUM 140 mmol/L (136-145)
[2020-06-07 05:05] LABS: BILIRUBIN,URINE NEGATIVE (NEGATIVE); CLARITY,URINE CLEAR (CLEAR); COLOR,URINE YELLOW (YELLOW); KETONES,URINE NEGATIVE (NEGATIVE); LEUKOCYTE ESTERASE ,URINE NEGATIVE (NEGATIVE); NITRITE,URINE NEGATIVE (NEGATIVE); PROTEIN,URINE DIPSTICK NEGATIVE (NEGATIVE); URINE UROBILINOGEN 0.2 mg/dL (0.2 - 1)
[2020-06-07] MEDS ORDERED: IOPAMIDOL 370 MG/ML 200 ML INFUS..BTL INJ ONE (05:16)
[2020-06-07] MEDS ORDERED: SODIUM CHLORIDE 0.9% 50ML 50 ML ONE (05:16)
[2020-06-07 05:19] LABS: AMORPHOUS SEDIMENT,URINE MANY (FEW); BACTERIA,URINE MANY /HPF; EPITHELIAL CELLS,URINE FEW /LPF; RBC,URINE 0-5 /HPF (0-5); WBC,URINE (MAN) 0-5 /HPF (0-5)
[2020-06-07] MEDS ORDERED: CEFTRIAXONE SOD 1 GM/NS 50 ML 50 ML IV STA (05:20)
[2020-06-07] MEDS ORDERED: ONDANSETRON HCL INJ 2MG/ML 2ML 2 MG/ML VIAL IV PRN (05:45)
[2020-06-07] MEDS: SODIUM CHLORIDE 0.9% 1000ML 1,000 ML IV SCH ×2 (06:17→13:47)
[2020-06-07 07:30] VITALS: BP 160/95
[2020-06-07] MEDS ORDERED: COMBIGAN EYE DRO5 ML (08:23)
[2020-06-07] MEDS ORDERED: LATANOPROST2.5 ML OP (08:23)
[2020-06-07 09:32] VITALS: BP 160/95
[2020-06-07 12:14] LABS: CREATINE KINASE MB 3.6 ng/mL (0-5.0)
[2020-06-07 12:23] VITALS: BP 163/86
[2020-06-07 16:30] VITALS: BP 162/81
[2020-06-07] MEDS ORDERED: CEFUROXIME250 MG PO ×2 (16:35→16:38)
== END 2020-06-07 17:30 | disposition home or self-care (01) ==
LOC: ER 03:48 → ERHOLD 05:46 → MED/SURG 07:06
PROVIDERS: ADMIT Internal Medicine; ATTEND Internal Medicine
DX: N39.0 Urinary tract infection, site not specified (principal); I10 Essential (primary) hypertension; E11.9 Type 2 diabetes mellitus without complications; I25.10 Atherosclerotic heart disease of native coronary artery without angina pectoris; E78.5 Hyperlipidemia, unspecified; N40.0 Benign prostatic hyperplasia without lower urinary tract symptoms; Z83.3 Family history of diabetes mellitus; Z80.0 Family history of malignant neoplasm of digestive organs; Z84.1 Family history of disorders of kidney and ureter; Z88.8 Allergy status to other drugs, medicaments and biological substances; Z91.013 Allergy to seafood; Z11.59 Encounter for screening for other viral diseases; Z79.84 Long term (current) use of oral hypoglycemic drugs
CPT/HCPCS: 36415; 71045; 74177; 80053; 81001; 82550; 82553; 82948; 83690; 83880; 84484; 85025; 93005; 99285; G0378; J0696; J7030; Q9967; U0002

== ENCOUNTER 2020-08-14 06:44 | Emergency (ER) | payer OTHER ==
[~2020-08-14] VITALS: Ht 180.3 cm; Wt 86.2 kg
[~2020-08-14 06:44] MED LIST changes: +CEFUROXIME250 MG PO; +COMBIGAN EYE DRO5 ML; +LATANOPROST2.5 ML OP
[2020-08-14] MEDS ORDERED: ONDANSETRON HCL INJ 2MG/ML 2ML 2 MG/ML VIAL IV STA (06:48)
[2020-08-14] MEDS ORDERED: SODIUM CHLORIDE 0.9% 1000ML 1,000 ML IV SCH (07:00)
[2020-08-14] MEDS ORDERED: MECLIZINE HCL 12.5 MG TAB PO ONE (07:00)
[2020-08-14] MEDS ORDERED: ASPIRIN 81 MG CHEW TAB PO ONE (07:00)
[2020-08-14 07:20] LABS: ALANINE AMINOTRANSFERASE 19 IU/L (0-55); ALBUMIN 3.9 g/dL (3.5-5.0); ALBUMIN/GLOBULIN RATIO 1.1 (0.8-2.0); ALKALINE PHOSPHATASE 48 IU/L (40-150); ANION GAP 14.1 mmol/L (8-16); BLOOD UREA NITROGEN 14 mg/dL (7-26); BUN/CREATININE RATIO 14 (6-25); CALCIUM 8.7 mg/dL (8.4-10.2); CARBON DIOXIDE 26 mmol/L (22-29); CHLORIDE 103 mmol/L (98-107); CREATINE KINASE 193 IU/L (30-200); CREATININE, SERUM 1.02 mg/dL (0.72-1.25); EST GLOMERULAR FILTRATION RATE > 60 ML/MIN (60-); GLUCOSE 195 mg/dL (74-118); POTASSIUM 4.1 mmol/L (3.5-5.1); SODIUM 139 mmol/L (136-145)
[2020-08-14 08:35] LABS: BASOPHILS % 0.7 % (0.0-1.0); EOSINOPHILS # (AUTO) 0.1 (0.0-0.4); EOSINOPHILS % 1.7 % (0.0-6.0); HEMATOCRIT 40.3 % (38.2-49.6); HEMOGLOBIN 13.3 g/dL (14.0-18.0); LYMPHOCYTES # (AUTO) 0.6 (1.0-3.2); LYMPHOCYTES % 11.3 % (18.0-39.1); MEAN CORPUSCULAR HEMOGLOBIN 29.7 pg (28-32); MONOCYTES # (AUTO) 0.2 (0.2-0.8); MONOCYTES % 4.5 % (4.4-11.3); NEUTROPHILS # (AUTO) 4.4 (2.1-6.9); NEUTROPHILS % 81.4 % (38.7-80.0); PLATELET COUNT 193 x10e3/uL (140-360); RED BLOOD COUNT 4.48 x10e6/uL (4.3-5.7); RED CELL DISTRIBUTION WIDTH 12.5 % (11.7-14.4)
[2020-08-14 08:43] LABS: CLARITY,URINE CLEAR (CLEAR); COLOR,URINE YELLOW (YELLOW); KETONES,URINE 2+ (NEGATIVE); LEUKOCYTE ESTERASE ,URINE NEGATIVE (NEGATIVE); NITRITE,URINE NEGATIVE (NEGATIVE); PROTEIN,URINE DIPSTICK NEGATIVE (NEGATIVE); URINE UROBILINOGEN 0.2 mg/dL (0.2 - 1)
[2020-08-14 08:59] LABS: WBC,URINE (MAN) 0-5 /HPF (0-5)
[2020-08-14 09:00] LABS: BACTERIA,URINE RARE /HPF; RBC,URINE 0-5 /HPF (0-5)
[2020-08-14] MEDS ORDERED: ZOFRAN4 MG SL ×2 (09:24→09:35)
[2020-08-14] MEDS ORDERED: MECLIZINE HCL12.5 MG PO ×2 (09:24→09:35)
[2020-08-14] MEDS ORDERED: SODIUM CHLORIDE 0.9% 50ML 0 ML ONE (09:53)
[2020-08-14] MEDS ORDERED: IOPAMIDOL 370 MG/ML 200 ML INFUS..BTL INJ ONE (09:54)
[2020-08-14 10:00] VITALS: BP 137/75
[2020-08-14] MEDS ORDERED: SODIUM CHLORIDE 0.9% 100 ML ONE (10:00)
== END 2020-08-14 10:02 | disposition home or self-care (01) ==
LOC: ER 06:54
DX: R42 Dizziness and giddiness (principal); R26.81 Unsteadiness on feet; R11.0 Nausea; E11.9 Type 2 diabetes mellitus without complications; E78.00 Pure hypercholesterolemia, unspecified; R94.31 Abnormal electrocardiogram [ECG] [EKG]
CPT/HCPCS: 36415; 70450; 70496; 80053; 81001; 82550; 82553; 84484; 85025; 93005; 99284; J2405; J7030; J7050; J8597; Q9967